=== PATIENT | female | born 1995 | race Caucasian/White ===

== ENCOUNTER 2021-03-16 00:13 | Inpatient (IN) ==
[2021-03-16] MEDS ORDERED: LACTATED RINGERS 500 ML IV PRN (00:26)
[2021-03-16] MEDS ORDERED: MEPERIDINE 50 MG/1 ML VIAL IV PRN (00:26)
[2021-03-16] MEDS ORDERED: BUTORPHANOL 2 MG/ML VIAL IV PRN (00:26)
[2021-03-16 01:52] LABS: Basophils % 0.2 % (0.0-0.8); Eosinophils # 0.1 10*3/uL (0.0-0.87); Eosinophils % 0.8 % (0.00-10.9); Hematocrit 30.9 VOL% (35.7-47.0); Hemoglobin 9.3 GM/DL (12.0-16.0); Immature Granulocytes % 0.8 %; Immature Granulocytes Absolute 0.08 #; Lymphocytes # 2.9 10*3/uL (1.4-4.0); Lymphocytes % 28.6 % (21.3-54.2); Mean Corpuscular HGB Conc 30.1 GM/DL (32-36); Mean Corpuscular Volume 78.4 FL (87-102); Mean Platelet Volume 10.7 FL (9.6-12.0); Monocytes % 6.1 % (1.7-12.7); Neutrophils % 63.5 % (38.7-73.9); Platelet Count 248 T/CUMM (130-400); Red Blood Count 3.94 MC/CUMM (3.8-5.5); Red Cell Distribution Width 15.9 % (9.3-17.3)
[2021-03-16 02:15] LABS: Alanine Aminotransferase < 9 U/L (13-56); Albumin 2.2 G/DL (3.4-5.0); Alkaline Phosphatase 185 U/L (45-117); Aspartate Amino Transferase 9 U/L (0-37); Blood Urea Nitrogen 8 MG/DL (7-18); Calcium 8.6 MG/DL (8.5-10.1); Carbon Dioxide 23 MMOL/L (21-32); Estimated Glom Filtration Rate 140 ML/MIN; Glucose 95 MG/DL (74-106); Osmolality,Calculated 270.8 MOS/KG (273-304); Potassium 3.2 MMOL/L (3.5-5.1); Sodium 137 MMOL/L (136-145); Total Protein 6.1 G/DL (6.4-8.2)
[2021-03-16] MEDS: LACTATED RINGERS 1,000 ML IV SCH ×2 (09:59→16:13)
[2021-03-16] MEDS ORDERED: OXYTOCIN/LR 20 UNIT/1,000 ML BAG IV SCH (10:00)
[2021-03-16] MEDS: ONDANSETRON 4 MG/2 ML VIAL IV PRN (10:00)
[2021-03-16] MEDS ORDERED: ePHEDrine 50 MG/ML VIAL IV PRN ×2 (13:00)
[2021-03-16] MEDS ORDERED: diphenhydrAMINE 50 MG/1 ML VIAL IV PRN ×2 (13:00)
[2021-03-16] MEDS ORDERED: FAMOTIDINE 20 MG/2 ML VIAL IV ONE ×2 (13:00→13:06)
[2021-03-16] MEDS ORDERED: LACTATED RINGERS 1,000 ML IV ONE (13:00)
[2021-03-16] MEDS ORDERED: NALOXONE 0.4 MG/ML VIAL IV PRN (13:00)
[2021-03-16] MEDS ORDERED: hydrOXYzine HCL 25 MG/1 ML VIAL IM PRN (13:00)
[2021-03-16] MEDS ORDERED: CITRIC ACID/SODIUM CITRATE 30 ML UDCUP PO ONE (13:00)
[2021-03-16] MEDS: fentaNYL 2 MCG/ROPIV 0.2% EPID 100 ML EPIDURAL SCH ×2 (14:06→23:05)
[2021-03-16] MEDS: POTASSIUM CHLORIDE 20 MEQ TABLET PO SCH ×4 (15:40→22:11)
[2021-03-16 16:32] LABS: Bacteria,Urine Occasional /HPF (Few); Bilirubin,Urine Negative (Negative); Blood, Urine Negative (Negative); Glucose,Urine (UA) Negative (Negative); Ketones,Urine 20 mg/dL (Negative); Mucus,Urine Occasional /LPF (Occasional); Nitrite,Urine Negative (Negative); Protein,Urine Negative; RBC,Urine <1 /HPF (0-4); Squamous Epithelial Cell,Urine Occasional /HPF (0-10); Urine Appearance CLEAR (Clear); Urine Color Straw (Yellow); Urine Specific Gravity 1.006 (1.001-1.035); Urine Urobilinogen < 2.0 EU/DL (0.2-1.0)
[2021-03-16] MEDS: AMPICILLIN INJ 2,000 MG in SODIUM CHLORIDE 0.9% 100 ML IV SCH (20:00)
[2021-03-17] MEDS: AMPICILLIN INJ 2,000 MG in SODIUM CHLORIDE 0.9% 100 ML IV SCH (02:12)
[2021-03-17] MEDS: ONDANSETRON 4 MG/2 ML VIAL IV PRN (02:19)
[2021-03-17] MEDS ORDERED: LIDOCAINE 1% 50 ML VIAL ONE (03:24)
[2021-03-17] MEDS ORDERED: LANOLIN 50% CREAM 0.3 OZ TUBE TOP PRN (04:27)
[2021-03-17] MEDS ORDERED: oxyCODONE/ACETAMINOPHEN 5-325 MG TABLET PO PRN (04:27)
[2021-03-17] MEDS ORDERED: ONDANSETRON 4 MG/2 ML VIAL IV PRN (04:27)
[2021-03-17] MEDS ORDERED: DIPH/TET/ACEL PERT BOOSTER VACCINE 0.5 ML VIAL IM ONE (04:27)
[2021-03-17] MEDS ORDERED: HYDROCORTISONE 2.5% RECTAL CREAM 30 GM TUBE TOP PRN (04:27)
[2021-03-17] MEDS ORDERED: ACETAMINOPHEN 325 MG TABLET PO PRN (04:27)
[2021-03-17] MEDS ORDERED: MEASLES/MUMPS/RUBELLA VACCINE 0.5 ML VIAL SUBCUT ONE (04:27)
[2021-03-17] MEDS ORDERED: BENZOCAINE 20%/MENTHOL 0.5% SPRAY 56 GM CAN TOP PRN (04:27)
[2021-03-17] MEDS ORDERED: OXYTOCIN/LR 20 UNIT/1,000 ML BAG IV ONE (04:27)
[2021-03-17] MEDS ORDERED: WITCH HAZEL PADS 100/JAR TOP PRN (04:27)
[2021-03-17] MEDS ORDERED: RHO(D) IMMUNE GLOBULIN 300 MCG SYRINGE IM ONE (04:27)
[2021-03-17] MEDS ORDERED: BISACODYL 10 MG SUPP RECTAL PRN (04:27)
[2021-03-17 04:38] LABS: Cord Venous Blood HCO3 22.5 MMOL/L; Cord Venous Blood PCO2 39.5 MMHG; Cord Venous Blood PO2 32.7
[2021-03-17] MEDS: oxyCODONE/ACETAMINOPHEN 5-325 MG TABLET PO PRN ×3 (08:49→20:25)
[2021-03-17] MEDS: FERROUS SULFATE 325 MG TABLET PO SCH ×2 (09:45→20:24)
[2021-03-17] MEDS: DOCUSATE SODIUM 100 MG CAPSULE PO SCH ×2 (09:45→20:24)
[2021-03-17] MEDS: IBUPROFEN 800 MG TABLET PO PRN ×2 (13:42→20:25)
[2021-03-17 19:48] LABS: Barbiturates Screen,Urine Negative (Negative); Benzodiazepines Screen,Urine Negative (Negative); Cannabinoid Screen,Urine Negative (Negative); Opiate Screen,Urine Negative (Negative); Phencyclidine Screen,Urine Negative (Negative)
[2021-03-18] MEDS: IBUPROFEN 800 MG TABLET PO PRN ×2 (04:03→10:52)
[2021-03-18] MEDS: oxyCODONE/ACETAMINOPHEN 5-325 MG TABLET PO PRN ×2 (04:03→10:51)
[2021-03-18 06:18] LABS: Basophils % 0.2 % (0.0-0.8); Eosinophils # 0.2 10*3/uL (0.0-0.87); Eosinophils % 1.5 % (0.00-10.9); Hematocrit 29.2 VOL% (35.7-47.0); Immature Granulocytes % 0.8 %; Lymphocytes # 3.5 10*3/uL (1.4-4.0); Lymphocytes % 26.4 % (21.3-54.2); Mean Corpuscular HGB Conc 30.8 GM/DL (32-36); Mean Corpuscular Volume 78.7 FL (87-102); Mean Platelet Volume 10.7 FL (9.6-12.0); Neutrophils % 67.1 % (38.7-73.9); Platelet Count 218 T/CUMM (130-400); Red Blood Count 3.71 MC/CUMM (3.8-5.5); Red Cell Distribution Width 16.1 % (9.3-17.3); White Blood Count 13.1 T/CUMM (4-12)
[2021-03-18] MEDS: FERROUS SULFATE 325 MG TABLET PO SCH (09:17)
[2021-03-18] MEDS: DOCUSATE SODIUM 100 MG CAPSULE PO SCH (09:17)
[2021-03-18 12:49] VITALS: BP 123/85
== END 2021-03-18 15:55 | disposition home or self-care (01) | DRG 807 ==
LOC: N.LD 00:13 → N.OB 03-17 09:38
PROVIDERS: ADMIT Obstetrics & Gynecology; ATTEND Obstetrics & Gynecology